=== PATIENT | female | born 1930 | race Caucasian/White ===

== ENCOUNTER → 2020-02-27 | Outpatient (CLI) | payer MEDICARE, OTHER ==
[~2020-02-27] MED LIST: DOCCAL240 PO; FOSAMAX70 MG PO; HYDACE5 PO; Loratadine10 MG PO; OMEP20ER PO; [UNRECOGNIZED DRUG - REMARK]
[2020-02-27 15:11] LABS: Anion Gap 9 mmol/L (6-16); Blood Urea Nitrogen 21 mg/dL (8-24); Bun/Creatinine Ratio 28.4 (12.0-20.0); CO2, Blood 27 mmol/L (21-32); Calcium, Blood 8.9 mg/dL (8.5-10.1); Chloride, Blood 92 mmol/L (98-108); Creatinine, Blood 0.74 mg/dL (0.40-1.00); Glomerular Filtration Rate >60 (60-); Glucose, Blood 104 mg/dL (70-99); Potassium, Blood 3.7 mmol/L (3.5-5.5); Sodium, Blood 128 mmol/L (136-145)
[2020-02-27 15:14] LABS: Hematocrit 38.1 % (33.0-51.0); Hemoglobin 13.1 g/dL (11.5-16.0); Mean Corpuscular HGB Conc 34.4 g/dL (31.5-36.5); Mean Corpuscular Volume 85 fL (80-100); RDW Coefficient Variation 13.6 % (11.7-14.2); RDW Standard Deviation 41.9 fL (35.1-46.3); Red Blood Cell Count 4.51 M/mm3 (3.80-5.20); White Blood Cell Count 6.75 K/mm3 (4.00-11.30)
[2020-02-27 15:54] LABS: BAND PERCENT MAN 9 % (0-8); BASOPHILS PERCENT MAN 0 % (0-2); EOSINOPHILS PERCENT MAN 0 % (0-6); LYMPHOCYTES ABSOLUTE MAN 1.21 K/mm3 (0.84-5.20); LYMPHOCYTES PERCENT MAN 18 % (21-46); METAMYELOCYTE ABSOLUTE MAN 0.06 K/mm3 (0.00-0.00); METAMYELOCYTE PERCENT MAN 1 % (0-0); MONOCYTES ABSOLUTE MAN 0.67 K/mm3 (0.16-1.47); MONOCYTES PERCENT MAN 10 % (4-13); NEUTROPHILS ABSOLUTE MAN 4.79 K/mm3 (1.96-9.15); SEG NEUTROPHILS PERCENT MAN 62 % (41-73); TOTAL CELLS COUNTED 100
[2020-02-27 16:00] LABS: Mean Platelet Volume 11.9 fL (9.1-12.4); Platelet Count 225 K/mm3 (150-400)
== END | disposition home or self-care (01) ==
LOC: LAB EV 15:02 → LAB SHORT 15:02
PROVIDERS: Family Medicine
DX: J18.0 Bronchopneumonia, unspecified organism (principal)
CPT/HCPCS: 80048; 85025

== ENCOUNTER 2020-02-28 16:31 | Inpatient (IN) | payer MEDICARE, OTHER ==
[~2020-02-28] VITALS: Ht 167.6 cm; Wt 49.0 kg
[~2020-02-28 16:31] MED LIST changes: -FOSAMAX70 MG PO; -OMEP20ER PO
[2020-02-28] MEDS ORDERED: FOSAMAX70 MG PO (17:51)
[2020-02-28] MEDS ORDERED: OMEP20ER PO (17:52)
[2020-02-28 21:58] LABS: Adenovirus Not Detected (NOT DETECT); Bordetella pertussis Not Detected (NOT DETECT); Chlamydophila pneumoniae Not Detected (NOT DETECT); Coronavirus 229E Not Detected (NOT DETECT); Coronavirus HKU1 Not Detected (NOT DETECT); Coronavirus NL63 Not Detected (NOT DETECT); Coronavirus OC43 Not Detected (NOT DETECT); Human Metapneumovirus Not Detected (NOT DETECT); Human Rhinovirus/Enterovirus Not Detected (NOT DETECT); Influenza A/2009-H1 Not Detected (NOT DETECT); Influenza A/H1 Not Detected (NOT DETECT); Influenza A/H3 Not Detected (NOT DETECT); Influenza B Not Detected (NOT DETECT); Mycoplasma pneumoniae Not Detected (NOT DETECT); Parainfluenza Virus 1 Not Detected (NOT DETECT); Parainfluenza Virus 2 Not Detected (NOT DETECT); Parainfluenza Virus 3 Not Detected (NOT DETECT); Parainfluenza Virus 4 Not Detected (NOT DETECT); Respiratory Syncytial Virus Detected (NOT DETECT)
[2020-02-29 04:58] LABS: BASOPHILS ABSOLUTE AUTO 0.02 K/mm3 (0.00-0.23); BASOPHILS PERCENT AUTO 0 % (0-2); EOSINOPHILS ABSOLUTE AUTO 0.05 K/mm3 (0.00-0.68); EOSINOPHILS PERCENT AUTO 1 % (0-6); Hematocrit 35.6 % (33.0-51.0); Hemoglobin 11.9 g/dL (11.5-16.0); IMMATURE GRAN ABSOLUTE AUTO 0.02 K/mm3 (0.00-0.10); IMMATURE GRAN PERCENT AUTO 0 % (0-1); LYMPHOCYTES ABSOLUTE AUTO 1.78 K/mm3 (0.84-5.20); LYMPHOCYTES PERCENT AUTO 26 % (21-46); MONOCYTES ABSOLUTE AUTO 0.76 K/mm3 (0.16-1.47); MONOCYTES PERCENT AUTO 11 % (4-13); Mean Corpuscular HGB 29.3 pg (26.0-34.0); Mean Corpuscular HGB Conc 33.4 g/dL (31.5-36.5); Mean Platelet Volume 11.2 fL (9.1-12.4); NEUTROPHILS PERCENT AUTO 61 % (41-73); Platelet Count 209 K/mm3 (150-400); RDW Coefficient Variation 13.5 % (11.7-14.2); RDW Standard Deviation 43.1 fL (35.1-46.3); Red Blood Cell Count 4.06 M/mm3 (3.80-5.20); White Blood Cell Count 6.73 K/mm3 (4.00-11.30)
[2020-02-29 05:02] LABS: Mean Corpuscular Volume 88 fL (80-100)
[2020-02-29 05:19] LABS: Anion Gap 8 mmol/L (6-16); Blood Urea Nitrogen 12 mg/dL (8-24); Bun/Creatinine Ratio 21.1 (12.0-20.0); CO2, Blood 27 mmol/L (21-32); Calcium, Blood 8.3 mg/dL (8.5-10.1); Chloride, Blood 100 mmol/L (98-108); Creatinine, Blood 0.57 mg/dL (0.40-1.00); Glomerular Filtration Rate >60 (60-); Glucose, Blood 91 mg/dL (70-99); Potassium, Blood 3.4 mmol/L (3.5-5.5); Sodium, Blood 135 mmol/L (136-145)
--- NOTE | 2020-02-29 07:54 | NUR ---
BUILDING COORDINATOR SUMMARY PT NEW ADMIT FROM ER. TRANSFERRED TO FLOOR AT 2052. INTRODUCED TO STAFF AND ROOM. A/O X4. OCCASTIONAL UNSTEADY GAIT. USES FWW AND CALLS APPROPRIATELY. VSS. DENIES CHEST PAIN, SOB, NAUSEA. PT BEEN NS TACHY IN THE HIGH 90'S. TELE MONITOR REPORTED PT TO BE NS TACHY IN THE 120S. AT THIS TIME PT WAS USING THE AMBULATED TO THE BATHROOM WITH STAFF'S ASSISTANCE. PT ASYMOPTOMATIC. PT'S DAUGHTER UPDATED ON PT'S STATUS. REPORT GIVEN TO AM NURSE.
--- NOTE | 2020-02-29 16:38 | NUR ---
SHIFT SUMMARY PT RESTING QUIETLY AT START OF SHIFT. ASSISTED PT UP FOR BREAKFAST, BUT ONLY EATING SM AMT. PT ATE A FEW MORE BITES AT LUNCH. PT VERY [place]. PT UP WITH 1P SBA USING FWW TO GO TO THE BTHRM. PT SEEMED TO FEEL BETTER THE DAY PROGRESSED. UP TO BTHRM EASIER EACH TIME. DR VALENCIA IN TO SEE PT EARLY THIS AM. PT REPORTED NOT FEELING WELL D/T COUGHING. PT REPORTED FEELING BETTER THIS AFTERNOON AND STATED THAT SHE WOULD LIKE TO GO FOR A WALK TOMORROW. PT'S DAUGHTER REPORTED THAT SHE IS USED TO WALKING AT THE [facility] WHERE SHE L[facility]. DAUGHTER SENT IN PROTIEN DRINKS AND PERSONAL ITEMS FOR PT TODAY. PT ENCOURAGED TO DRINK WATER AND INCREASE NUTRITION. PT'S HR ELEVATED ONCE WHEN UP TO BTHRM, PER TELE MX. BUT WENT QUICKLY BACK DOWN TO NORMAL, PER TELE MX WELL, ONCE BACK TO BED. PT'S DAUGHTER REQUESTED AN UPDATE THIS EVENING; GIVEN TO [place], PER REQUEST. PT DENIED FURTHER NEEDS. CALL LT IN REACH.
--- NOTE | 2020-03-01 02:47 | NUR ---
PT A/O X4. DENIES PAIN, NAUSEA, DIZZINIESS. OCCASSIONAL COUGH. SOB WHENEVER COUGHING OR WITH EXERTION. ON TELE, SINUS TACH IN THE 100'S. ROOM AIR SATTING IN THE LOW TO MID 90'S. VSS. BED ALARM ON. NO ACUTE CHANGES.
--- NOTE | 2020-03-01 15:05 | NUR ---
SHIFT SUMMARY PT RESTING QUIETLY AT START OF SHIFT. WOKE EASILY FOR CARE. REPORTED BEING ABLE TO BREATHE BETTER TODAY. REQUESTED ASSIST TO BSC TO VOID. DECLINED WANTING TO WALK TO BTHRM THIS AM, REPORTING THAT SHE DIDN'T FEEL LIKE IT. PT LATER IN THE DAY ABLE TO WALK TO BTHRM, THOUGH WAS HESITANT AT FIRST, BUT LATER GRATEFUL FOR GETTING UP AND MOVING AROUND. LUNGS T/O REMAINED COARSE WITH INSP/EXP WHEEZES, BUT IMPROVED FROM YESTERDAY. PT EATING A LITTLE BETTER TODAY WELL. APPETITE STILL POOR, BUT SLIGHTLY IMPROVED. DRINKING BETTER WELL. PT C/O HOLCOMB AND NECK ACHE D/T COUGHING; MEDICATED PER EMAR WITH TYLENOL. NO FURTHER CHANGES TO PRESENT. CALL LT IN REACH. BED ALARM ON FOR SAFETY.
--- NOTE | 2020-03-02 06:06 | NUR ---
ELECTRONICS INSPECTOR SUMMARY PT A/OX4. HARD OF HEARING. BED ALARM ON, CALLS APPROPRIATELY. AMBULATED TO BATHROOM WITH FWW AND 1 ASSIST. PT HAS BEEN MOVING AT A SLOWER PACE COMPARED TO WHEN I ADMITTED HER. STILL SOB WITH EXERTION. VSS. ROOM AIR SATTING IN THE MID 90'S. PT ENCOURAGED TO DRINK MORE FLUIDS. PT HAS NOT HAD BM SINCE THE 02/28/20. DENIES FEELING CONSTIPATED. PT HAS ALSO NOT BEEN EATING MUCH. BOWEL CARE ORDERED. I OFFERED MILK OF MAG TO HELP WITH PT'S BM TO WHICH PT REFUSED AND SAID SHE "WILL WAIT". NO ACUTE CHANGES.
--- NOTE | 2020-03-02 07:42 | NUR ---
COVID 19 RESULTS JUST RECEIVED A CALL FROM THE LAB. COVID 19 TEST RESULTS ARE NEGATIVE.
--- NOTE | 2020-03-02 20:56 | NUR ---
ASSUMED CARE. TEDDY IS WATCHING TV SITTING IN HER BED. VS WNL, AFEBRILE. DENIES PAIN OR DISCOMFORT. LUNG SOUNDS DIMINISHED THROUGOUT, DYSPNEA WITH EXERTION, COUGH PRODUCTIVE, WHITE SPUTUM. NO EDEMA. ON RA GOOD SATS. NO SKIN BREAKDOWN. WHERES NECK BRACE FOR COMFORT. IV ANTIBOTIC COMPLETED, FLUSHED AND SL. DENIES ANY NEEDS AT THIS TIME. WILL CONTINUE TO MONITOR.
--- NOTE | 2020-03-02 20:56 | NUR ---
Primary Care At 2055, this PL SQL DEVELOPER rounded on [phone] as the nurse was entering the room. The patient seemed to be in no distress and was calmly watching T.V. During this shift the nurse will be primary care for this patient.
--- NOTE | 2020-03-02 22:00 | NUR ---
ASSISTED TO BATHROOM. SHE IS SBA WITH WALKER. DID HAVE PEBBLE FOR BM. YELLOW URINE. DENIES PAIN WITH URINATION. SHE WAS ABLE TO GET BACK TO BED. CALL LIGHT GIVEN.
--- NOTE | 2020-03-02 23:30 | NUR ---
PATIENT WAS SLEEPING IN ROOM, NO SIGNS OF DISTRESS NOTED. WILL CONTINUE TO MONITOR.
--- NOTE | 2020-03-03 02:55 | NUR ---
PATIENT SLEEPING COMFORTABLY, NO DISTRESS NOTED. CALL LIGHT IN REACH.
--- NOTE | 2020-03-03 04:57 | NUR ---
SHIFT SUMMARY; TEDDY HAD A GOOD NIGHT. VS HAVE REMAINED WNL, AFEBRILE. SATS GOOD ON RA. COUGH STILL HARSH AND CONSISTENT WITH WHITE SILIVA LIKE SECRETIONS. SHE USES THE FLUTTER VALVE OFTEN. LUNG SOUNDS CLEAR/DIMINISHED. IV REMAINED PATENT. UP WITH SBA USING WALKER TO BATHROOM. MEDS PER EMAR. NO PAIN NOTED. NO ACUTE CHANGES THIS SHIFT. WILL REPORT OFF.
[2020-03-03 09:09] LABS: G-6-PD, QUANT 297 (146-376); RBC 4.29 x10E6/uL (3.77-5.28)
[2020-03-03] MEDS ORDERED: Aspir 8181 MG PO (11:21)
[2020-03-03] MEDS ORDERED: ACET325 PO (11:21)
[2020-03-03] MEDS ORDERED: Florastor250 MG PO (11:22)
[2020-03-03] MEDS ORDERED: AMOCLA875 PO (11:24)
--- NOTE | 2020-03-03 14:37 | NUR ---
PATIENT DC'D TO HOME WITH HOME HEALTH. DAUGHTER HERNAN CAME TO PICK HER UP. RX MEDICATIONS FACED TO [facility]. DC INSTRUCTIONS DISCUSSED WITH PATIENT AND COPY PROVIDED. PATIENT DENIES ANY FURTHER QUESTIONS OR CONCERNS.
== END 2020-03-03 14:40 | disposition home health service (06) | DRG 871 ==
LOC: ER 16:31 → MEDS 18:48 → ENPENDDIS 03-03 11:29 → MEDS 03-03 14:40
PROVIDERS: Emergency Medicine; ADMIT Family Medicine
DX: A41.9 Sepsis, unspecified organism (principal); J12.1 Respiratory syncytial virus pneumonia; E87.1 Hypo-osmolality and hyponatremia; E87.6 Hypokalemia; I48.0 Paroxysmal atrial fibrillation; Z74.09 Other reduced mobility; Z03.818 Encounter for observation for suspected exposure to other biological agents ruled out; Z86.73 Personal history of transient ischemic attack (TIA), and cerebral infarction without residual deficits; Z87.891 Personal history of nicotine dependence
CPT/HCPCS: 0099U; 36415; 71045; 80048; 82728; 82955; 83605; 83615; 84484; 85018; 85025; 87040; 93005; 93010; 96365; 96367; 97116; 97162; 97165; 97535; 99285-25; A9270; J0456; J0696; J1650; J3480; J7030; J7050; U0002

== ENCOUNTER → 2020-02-28 | Outpatient (CLI) | payer MEDICARE, OTHER ==
[2020-02-28 15:04] LABS: BASOPHILS ABSOLUTE AUTO 0.03 K/mm3 (0.00-0.23); BASOPHILS PERCENT AUTO 0 % (0-2); EOSINOPHILS ABSOLUTE AUTO 0.01 K/mm3 (0.00-0.68); EOSINOPHILS PERCENT AUTO 0 % (0-6); Hematocrit 34.8 % (33.0-51.0); IMMATURE GRAN ABSOLUTE AUTO 0.03 K/mm3 (0.00-0.10); IMMATURE GRAN PERCENT AUTO 0 % (0-1); LYMPHOCYTES ABSOLUTE AUTO 1.63 K/mm3 (0.84-5.20); LYMPHOCYTES PERCENT AUTO 19 % (21-46); MONOCYTES ABSOLUTE AUTO 0.97 K/mm3 (0.16-1.47); MONOCYTES PERCENT AUTO 11 % (4-13); Mean Corpuscular HGB 29.1 pg (26.0-34.0); Mean Corpuscular HGB Conc 34.5 g/dL (31.5-36.5); Mean Corpuscular Volume 85 fL (80-100); Mean Platelet Volume 11.5 fL (9.1-12.4); NEUTROPHILS ABSOLUTE AUTO 5.86 K/mm3 (1.96-9.15); NEUTROPHILS PERCENT AUTO 69 % (41-73); Platelet Count 217 K/mm3 (150-400); RDW Coefficient Variation 13.5 % (11.7-14.2); RDW Standard Deviation 41.9 fL (35.1-46.3); Red Blood Cell Count 4.12 M/mm3 (3.80-5.20); White Blood Cell Count 8.53 K/mm3 (4.00-11.30)
[2020-02-28 15:15] LABS: Anion Gap 7 mmol/L (6-16); Blood Urea Nitrogen 16 mg/dL (8-24); Bun/Creatinine Ratio 21.1 (12.0-20.0); CO2, Blood 28 mmol/L (21-32); Calcium, Blood 8.5 mg/dL (8.5-10.1); Chloride, Blood 93 mmol/L (98-108); Creatinine, Blood 0.76 mg/dL (0.40-1.00); Glomerular Filtration Rate >60 (60-); Glucose, Blood 103 mg/dL (70-99); Potassium, Blood 3.5 mmol/L (3.5-5.5); Sodium, Blood 128 mmol/L (136-145)
[2020-02-28 15:16] LABS: Troponin I <0.017 ng/mL (0.000-0.040)
== END | disposition home or self-care (01) ==
LOC: LAB EV 14:55 → LAB SHORT 14:55
PROVIDERS: Physician Assistant Surgical
DX: J18.1 Lobar pneumonia, unspecified organism (principal)
CPT/HCPCS: 80048; 83880; 84484; 85025